=== PATIENT | female | born 1985 | race Caucasian/White ===

== ENCOUNTER 2018-06-12 16:26 | Emergency (ER) | payer SELFPAY ==
[~2018-06-12] VITALS: Ht 165.1 cm; Wt 56.7 kg
--- NOTE | 2018-06-12 16:32 | NUR ---
SANDRO TRIPLETT 89 From Home [facility] SPONSOR CONTACTED AMBULANCE FOR SUSPECTED OVERDOSE. "I HAD A SLIP OF HEROINE LAST NOVEMBER AND I DIDN'T TAKE ANY MEDICATIONS AT ALL, I JUST DIDN'T HAVE ENOUGH SLEEP, THAT'S ALL" . TO ER BED 4, AWAITING MD MAN.
--- NOTE | 2018-06-12 17:36 | NUR ---
PT NOT ABLE TO PROVIDE URINE SAMPLE, KINDER TEACHER FISHER AWARE AND SPOKE TO PT. DISCHARGED HOME IN STABLE CONDITION. WRITTEN AND VERBAL AFTER CARE INSTRUCTIONS GIVEN, PT VERBALIZES UNDERSTANDING OF INSTRUCTIONS.
[2018-06-12 17:44] VITALS: BP 106/41
== END 2018-06-12 17:45 | disposition home or self-care (01) ==
LOC: ER 16:27
DX: F11.20 Opioid dependence, uncomplicated (principal); N89.8 Other specified noninflammatory disorders of vagina
CPT/HCPCS: A4606; Z7610

== ENCOUNTER 2020-09-15 16:52 | Emergency (ER) | payer BC ==
[~2020-09-15] VITALS: Ht 175.3 cm; Wt 64.0 kg
--- NOTE | 2020-09-15 17:13 | NUR ---
[id number] FROM [facility] FOR OD ON OXYCODONE. PT TOOK 6 TABS OF OXYCODONE 10MG & WAS GIVEN 4MG OF NARCAN BY STAFF AT [facility] PER EMS REPORT. PT AAOX4, RR EVEN & UNLABORED. TALKING ON CELLPHONE. DENIES CP, SOB, DIZZINESS, N/V, ABD PAIN AT THIS TIME. PT SEEN & EVAL'D BY DR. RAMIREZ. PLACED ON MEDICAL DOCTOR MD/MEDICAL DIRECTOR, [facility] TO MONITOR.
[2020-09-15] MEDS ORDERED: NALO4SPR NS (17:57)
--- NOTE | 2020-09-15 19:14 | NUR ---
The patient is alert and oriented x4. Denies SOB. Respiration regular and unlabored. Denies pain.Patient discharged to home in stable condition. Written and verbal after care instructions given. Patient verbalizes understanding of instruction.The patient left ER in stable condition.
[2020-09-15 19:16] VITALS: BP 132/84
== END 2020-09-15 19:17 | disposition home or self-care (01) ==
LOC: ER 16:58
DX: T40.2X1A Poisoning by other opioids, accidental (unintentional), initial encounter (principal); Y92.89 Other specified places as the place of occurrence of the external cause

== ENCOUNTER 2023-01-26 05:55 | Emergency (ER) | payer BC ==
[~2023-01-26] VITALS: Ht 172.7 cm; Wt 63.5 kg
[~2023-01-26 05:55] MED LIST: NALO4SPR NS
[2023-01-26 06:35] LABS: BASOPHILS # (AUTO) 0.1 K/uL (0.0-0.2); BASOPHILS % (AUTO) 0.6 % (0.0-2.0); EOSINOPHILS % (AUTO) 0.3 % (0.0-6.0); HEMATOCRIT 31 % (33-45); HEMOGLOBIN 10.5 g/dL (11.5-14.8); LYMPHOCYTES # (AUTO) 1.7 K/uL (0.8-4.8); MEAN CORPUSCULAR HEMOGLOBIN 31 PG (26.0-33.0); MEAN CORPUSCULAR HGB CONC 34 g/dl (31.0-36.0); MEAN CORPUSCULAR VOLUME 91 fL (82-100); MONOCYTES # (AUTO) 0.8 K/uL (0.1-1.30); MONOCYTES % (AUTO) 8.3 % (2.0-12.0); NEUTROPHILS # (AUTO) 6.9 K/uL (1.8-8.9); NEUTROPHILS % (AUTO) 72.8 % (43.0-81.0); PLATELET COUNT (AUTO) 303 K/uL (150-450); RED BLOOD CELL COUNT(AUTO) 3.42 MIL/uL (4.0-5.2); WHITE BLOOD COUNT (AUTO) 9.4 K/uL (4.3-11.0)
[2023-01-26 06:43] LABS: CALCIUM, SERUM 8.8 mg/dL (8.5-10.1); CARBON DIOXIDE 25 mmol/L (21-32); CHLORIDE 107 mmol/L (98-107); CREATININE 0.9 mg/dL (0.6-1.3); GLUCOSE 102 mg/dL (74-106); POTASSIUM 3.7 mmol/L (3.5-5.1); SODIUM SERUM 142 mmol/L (136-145); UREA NITROGEN, BLOOD 14 mg/dL (7-18)
[2023-01-26 06:54] LABS: ALANINE AMINOTRANSFERASE 16 U/L (12-78); ALBUMIN 3.3 g/dL (3.4-5.0); ALCOHOL, BLOOD < 3 mg/dL (0-10); ALKALINE PHOSPHATASE 57 U/L (46-116); ASPARTATE AMINOTRANSFERASE 14 U/L (15-37); BILIRUBIN,TOTAL 0.3 mg/dL (0.2-1.0); TOTAL PROTEIN, SERUM 6.6 g/dL (6.4-8.2)
[2023-01-26 07:11] LABS: SALICYLATE < 2.3 mg/dL (2.8-20.0)
[2023-01-26 07:12] LABS: ACETAMINOPHEN <10 ug/ml (10-30)
[2023-01-26 07:23] LABS: BILIRUBIN,DIRECT 0.1 mg/dL (0.0-0.2)
[2023-01-26 08:28] VITALS: BP 119/79; TEMP 98.1; O2SAT 100
== END 2023-01-26 08:29 | disposition home or self-care (01) ==
LOC: ER 05:59
DX: T50.901A Poisoning by unspecified drugs, medicaments and biological substances, accidental (unintentional), initial encounter (principal); Z79.899 Other long term (current) drug therapy; Y92.89 Other specified places as the place of occurrence of the external cause
CPT/HCPCS: 36415; 80048-TC; 80076-TC; 84702-TC; 85025-TC; G0480